=== PATIENT | male | born 1955 | race Caucasian/White ===

== ENCOUNTER 2019-11-09 07:13 | Outpatient (CLI) | payer BC ==
--- NOTE | 2019-11-09 08:10 | ULT ---
ULTRASOUND GALLBLADDER RIGHT UPPER QUADRANT: CLINICAL HISTORY: Right upper quadrant pain.. COMPARISON: None. FINDINGS: Pancreas: Obscured by bowel gas. Liver:Increased echogenicity which may be due to hepatic steatosis or hepatocellular disease. Subsequ ent limited evaluation for hepatic masses and intrahepatic biliary dilatation. 2.5 x 1.5 x 2.4 cm hypoechoic focus in the right hepatic lobe, incompletely evaluated. Right hepatic lobe: 18.5 cm. Gallbladder: No sonographic evidence of cholelithiasis, gallbladder wall thickening or pericholecysti c fluid. Morillo's sign:Negative Portal Vein: Patent. Appropriate directional flow. Bile ducts: Suboptimally visualized. Right kidney: No hydronephrosis. Right kidney measures 11.7 x 5.5 x 6.4 cm in length. IMPRESSION: 1. Hypoechoic focus in the right hepatic lobe, incompletely evaluated. Overall there is heterogeneity of the hepatic parenchyma which may be due to hepatic steatosis or hepatocellular disease. If there is concern for hepatic masses, liver mass protocol CT is recommended. 2. No sonographic evidence of cholelithiasis or cholecystitis. Transcribed Date/Time: 11/09/2019 8:34 AM
--- NOTE | 2019-11-09 08:33 | RAD ---
EXAM: XR Barium Swallow Esophagus PROVIDED CLINICAL HISTORY: Right upper quadrant abdominal pain, chest pain. Dysphagia. COMPARISON: None FINDINGS: A double contrast esophagram was performed in usual fashion. Patient demonstrates normal primary esop hageal peristalsis during the exam. No tertiary contractions were appreciated during the exam; however, on one of the provided overhead images with swallowing, there are tertiary contractions seen . No mucosal irregularity or focal narrowing is seen in the esophagus. A small hiatal hernia is present. No gastroesophageal reflux was demonstrated during this exam. Provided chest x-ray demonstrates that the lungs are clear. Cardiac silhouette and pulmonary vasculat ure are within normal limits. Mild degenerative changes are noted in the thoracic spine. IMPRESSION: 1. Minimal tertiary contractions in the esophagus, but normal primary esophageal peristalsis is ident ified. 2. Small sliding type hiatal hernia without gastroesophageal reflux.
== END 2019-11-09 07:14 | disposition home or self-care (01) ==
LOC: ULT 07:13
PROVIDERS: ATTEND Family Medicine
DX: R10.11 Right upper quadrant pain (principal); R13.10 Dysphagia, unspecified; K44.9 Diaphragmatic hernia without obstruction or gangrene
CPT/HCPCS: 74220; 76705

== ENCOUNTER 2021-11-24 08:01 | Outpatient (CLI) | payer MEDICARE, BC ==
[2021-11-24 08:41] LABS: Estimated GFR-MDRD - POC Greater than 90
[2021-11-24] MEDS ORDERED: Iopamidol 370 76% 100 ML VIAL ONE (11:20)
== END 2021-11-24 08:02 | disposition home or self-care (01) ==
LOC: CT 08:01
PROVIDERS: ATTEND Internal Medicine
DX: R10.13 Epigastric pain (principal); K57.30 Diverticulosis of large intestine without perforation or abscess without bleeding; Z80.0 Family history of malignant neoplasm of digestive organs; Z86.010 Personal history of colon polyps
CPT/HCPCS: 74170; 82565; Q9967

== ENCOUNTER 2022-06-26 09:01 | Outpatient (CLI) | payer MEDICARE, BC ==
[2022-06-26] MEDS ORDERED: Iopamidol-370 76% 500 ML 1 ML ONE (09:08)
== END 2022-06-26 09:02 | disposition home or self-care (01) ==
LOC: BICCT 09:01
PROVIDERS: ATTEND Internal Medicine
DX: K59.00 Constipation, unspecified (principal); R10.10 Upper abdominal pain, unspecified; R14.0 Abdominal distension (gaseous); K57.30 Diverticulosis of large intestine without perforation or abscess without bleeding; K76.0 Fatty (change of) liver, not elsewhere classified
CPT/HCPCS: 74177; 82565; Q9967

== ENCOUNTER 2022-08-21 12:25 | Outpatient (CLI) | payer MEDICARE, BC | END 2022-08-21 12:26 | disposition home or self-care (01) | LOC: NM 12:25 | PROVIDERS: ATTEND Physician Assistant Medical | DX: R10.11 Right upper quadrant pain (principal); K82.8 Other specified diseases of gallbladder; K80.10 Calculus of gallbladder with chronic cholecystitis without obstruction | CPT/HCPCS: 78227; A9537 ==